=== PATIENT | male | born 1965 | race Caucasian/White ===

== ENCOUNTER 2021-08-08 09:44 | Observation (INO) ==
--- NOTE | 2021-08-02 09:13 | Anesthesiology Consultation ---
Date of Service August 02, 2021 Assessment & Plan (1) Encounter for pre-operative examination: COVID screening: Per assessment on 08/02: No known COVID-19 positive contacts or current COVID-19 related symptoms. Travel screen- returned from travel to [place] approximately 2 weeks ago (via car, stayed in hotel, no large gatherings, wore PPE "when needed"). Patient vaccinated. Surgeon arranging preop COVID testing (scheduled 08/04; [place]). Awaiting results. Chart Review Chart Review: Acceptable Risk for Surgery and Patient NOT seen in Pre Admission Testing History Surgery Operation Date: 08/08/21 11:50 Proposed Procedures p Excision of Lipoma Upper Back - Donnie Dee MD, FACS Height/Weight Height: 5 ft 9 in Weight: 106.594 kg Allergies Allergy/AdvReac Type Severity Reaction Status Date / Time No Known Allergies Allergy Verified 08/08/21 10:05 Medications Home Medications Medication Instructions Recorded Confirmed Last Taken No Known Home Medications 09/25/19 08/08/21 Unknown Active Medications Generic Name Dose Route Start Last Admin Trade Name Freq PRN Reason Stop Dose Admin Lactated Ringer's 1,000 mls @ 15 mls/hr 08/08/21 06:00 08/08/21 10:27 Lr IV 08/09/21 05:59 15 mls/hr .Q24H JOLENE Administration Past Medical History Medical History Arthritis Sleep apnea CPAP Subcutaneous mass Past Family History Family History Mother Breast cancer Cancer Diabetes Father Cancer Colorectal cancer Brother Cancer Grandmother Diabetes Past Surgical History Surgical History H/O knee surgery cyst x2 History of ankle surgery Hx of colonoscopy S/P lateral meniscus repair of right knee Social History Smoking Status: Never smoker Do You Dip or Chew Tobacco: No Hx Alcohol Use: No Hx Substance Use: No substance use type: does not use Physical Exam Vital Signs Last Vital Signs Temp 36.7 C 08/08/21 10:16 Pulse 72 08/08/21 10:16 Resp 18 08/08/21 10:16 BP 137/84 08/08/21 10:16 Pulse Ox 96 08/08/21 10:16 Lab Results Anesthesia Preop Results Results Anesthesia Widget: WBC 7.89 K/uL (4.8-10.8) 07/12/21 Hgb 15.6 g/dL (14.0-18.0) 07/12/21 Hct 46.2 % (42-52) 07/12/21 Plt 279 K/uL (130-400) 07/12/21 Na 139 mmol/L (136-145) 07/12/21 K 3.9 mmol/L (3.5-5.1) 07/12/21 Cl 105 mmol/L (98-107) 07/12/21 CO2 26 mmol/L (21-32) 07/12/21 BUN 16 mg/dl (6-23) 07/12/21 Creat 0.94 mg/dl (0.6-1.4) 07/12/21 Glucose Level 94 mg/dl (70-99(Fasting)) 07/12/21 Testing Electrocardiogram Date: 07/12/21 Findings: + NSR @ (47)
[~2021-08-08 09:44] MED LIST: LACTATED RINGER'S 1,000 ML IV SCH; ceFAZolin 2000MG 2,000 MG/15 ML SYR IV SCH
[2021-08-08] MEDS ORDERED: DEXAMETHASONE SOD INJ 4 MG/ML VIAL ONE (10:24)
[2021-08-08] MEDS ORDERED: ROCURONIUM BROMIDE 10 MG/ML 5 ML VIAL IV ONE (10:24)
[2021-08-08] MEDS ORDERED: PROPOFOL IV EMULSION 10 MG/ML 20 ML VIAL IV ONE (10:24)
[2021-08-08] MEDS ORDERED: ONDANSETRON INJ 2 MG/ML 2 ML VIAL ONE (10:24)
[2021-08-08] MEDS ORDERED: fentaNYL citrate 100 MCG/2 ML VIAL ONE ×2 (10:25→12:51)
--- NOTE | 2021-08-08 11:20 | History & Physical Bridge Note ---
Date of Service August 08, 2021 History & Physical Bridge Note I have examined the patient, reviewed the History & Physical and in the interval since the performance of the History & Physical I have noted the following changes of clinical significance: no changes noted
[2021-08-08] MEDS ORDERED: BUPIVACAINE 0.5 % 5 MG/1 ML MPF 30ML VIAL ONE (11:24)
[2021-08-08] MEDS ORDERED: SUGAMMADEX SODIUM 200 MG/2 ML VIAL IV ONE (11:36)
[2021-08-08] MEDS ORDERED: GLYCOPYRROLATE 0.2 MG/ML VIAL ONE (12:15)
[2021-08-08] MEDS ORDERED: oxyCODONE HCL IR 5 MG TAB (IMMEDIATE RELEASE) PO PRN (13:08)
[2021-08-08] MEDS ORDERED: ACETAMINOPHEN 1,000 MG/100 ML VIAL IV ONE (13:08)
--- NOTE | 2021-08-08 13:08 | Post Operative Brief Note ---
PG Immediate Post Op with CF Date of Surgery August 08, 2021 Pre & Post Diagnosis Operation Date: 08/08/21 11:50 Pre-Op Diagnosis: Lipoma Post-Op Diagnosis: Lipoma I identified the patient and participated in the time-out.: Yes Procedure Operation Date: 08/08/21 11:50 Actual Procedures p Excision of Lipoma Upper Back(Right) - Donnie Dee MD, FACS Surgeon Donnie Dee MD, FACS Director Of Ancillary Services Abdias Silva Estimated Blood Loss 20 Findings Consistent with Post-Op Diagnosis 14 x 8 cm lipoma extending into the muscle Specimens Specimen Description: a. lipoma, right upper back (14 x 8) Drains Nilay-German Drain (15 fr round drain to 100ml reservoir)
--- NOTE | 2021-08-08 14:29 | Anesthesiology Progress Note ---
Date of Service August 08, 2021 Anesthesia Post Procedure Vital Signs Vital Signs: Temp Pulse Pulse Resp BP BP Pulse Ox 08/08/21 14:20 76 20 116/66 97 08/08/21 14:10 36.5 C 64 14 112/61 93 08/08/21 14:00 62 12 108/61 93 08/08/21 13:50 75 14 106/67 100 08/08/21 13:40 68 12 121/72 100 08/08/21 13:30 71 14 121/71 100 08/08/21 13:23 36.9 C 95 H 18 116/78 96 08/08/21 10:16 36.7 C 72 18 137/84 96 Transfer of Care Handoff Completed per policy Notes Mental Status: alert / awake / arousable and participated in evaluation Patient Amnestic to Procedure: Yes Nausea / Vomiting: adequately controlled Pain: adequately controlled Airway Patency, RR, SpO2: stable & adequate BP & HR: stable & adequate Hydration State: stable & adequate Anesthetic Complications: no major complications apparent and Pt Satisfied with anesthetic care Notes: The patient is doing well in recovery with no complaints. He will be admitted per Dr. Dee as he needed to have a drain placed intraoperatively.
[2021-08-08] MEDS ORDERED: IBUPROFEN 600 MG TAB PO PRN (14:56)
[2021-08-08] MEDS ORDERED: PROMETHAZINE HCL 12.5 MG in SODIUM CHLORIDE 0.9% 50 ML IV PRN (14:56)
[2021-08-08] MEDS ORDERED: ACETAMINOPHEN 325 MG TAB PO PRN (14:56)
[2021-08-08] MEDS ORDERED: HYDROmorphone INJ 0.5 MG/0.5 ML SYR IV PRN (14:56)
[2021-08-08] MEDS ORDERED: ONDANSETRON INJ 2 MG/ML 2 ML VIAL IV PRN (14:56)
--- NOTE | 2021-08-08 15:28 | Operative Report (OR) ---
DATE OF OPERATION: 08/08/2021. NAME OF OPERATION: Excision of lipoma, upper back. PREOPERATIVE DIAGNOSIS: Lipoma, upper back. POSTOPERATIVE DIAGNOSIS: Lipoma, upper back. STAFF SURGEON: Donnie Dee MD. SKEIN WINDING OPERATOR: Nithin Silva PA-C. ANESTHESIA: General. DESCRIPTION OF PROCEDURE: The patient was brought in the operating room and placed on the operating table in supine position. After appropriate anesthetic, he was placed in the left lateral decubitus position. His upper back was prepped and draped in the usual fashion. Transverse incision was made over the lipoma in the upper back, carrying dissection down, excising the lipoma from surrounding tis jong. It did extend into the subcutaneous tissue and into the muscle in different areas. The lipoma w as 14 cm x 8 cm. At this point, I felt that a drain should be placed. We used a #15 round ARNOLDO placed through a separate stab incision and secured using 3-0 nylon suture. Deep tissue was reapproximated using 2-0 and 0 chromic suture, and the skin reapproximated using 3-0 and 4-0 nylon suture. Dressin g applied. The patient was transferred to the recovery room in stable condition. My virtual office assistant arlette jeffery with prepping, draping, excision of the lipoma and closure of the wound. Job ID: [id number]
[2021-08-08] MEDS: ceFAZolin 2000MG 2,000 MG/15 ML SYR IV SCH (20:11)
[2021-08-08] MEDS: DOCUSATE SODIUM/SENNA 50/8.6MG TAB PO SCH (20:11)
[2021-08-09] MEDS: ceFAZolin 2000MG 2,000 MG/15 ML SYR IV SCH (04:38)
[2021-08-09] MEDS: DOCUSATE SODIUM/SENNA 50/8.6MG TAB PO SCH (08:45)
--- NOTE | 2021-08-09 12:22 | Discharge Summary (DS) ---
DATE OF DISCHARGE: 08/09/2021. DATE OF ADMISSION: 08/08/2021. PRINCIPAL DIAGNOSIS: Soft tissue mass. PROCEDURE: The patient underwent excision of soft tissue mass with drain placement. HISTORY OF PRESENT ILLNESS: The patient is a 56-year-old male with a large subcutaneous mass in the upper back area. He was brought into the hospital on 08/08/2021 where he underwent excision of the m ass, which was very large, approximately 14 x 7 cm and deep down into the muscle. He did have drain placement. He has done well overnight and is felt stable for discharge home to be followed in the [facility] later this week. Job ID: [id number]
== END 2021-08-09 10:52 | disposition home or self-care (01) | DRG 572 ==
LOC: ASU 09:44 → PACUINP 13:55 → INTOOBSV 13:55 → 3N 15:17
DX: D17.1 Benign lipomatous neoplasm of skin and subcutaneous tissue of trunk